=== PATIENT | male | born 1935 | race Caucasian/White ===

== ENCOUNTER 2017-04-28 17:20 | Inpatient (IN) | payer MEDICARE ==
[2017-04-28 20:57] VITALS: BP 133/78; PULSE 99; RESP 16; TEMP 98; O2SAT 94
[2017-04-28] MEDS ORDERED: MAGNESIUM HYDROXIDE SUSP 30 ML CUP PO PRN (21:00)
[2017-04-28] MEDS ORDERED: PILL SPLITTER OTHER PRN (21:00)
[2017-04-28] MEDS ORDERED: diphenhydrAMINE HCL 50 MG/ML VIAL - HS PRN IM (21:00)
[2017-04-28] MEDS ORDERED: LORazepam 2 MG/ML VIAL - age > 65 yrs IM PRN (21:00)
[2017-04-28] MEDS ORDERED: ALUMINUM/MAGNESIUM/SIMETH 30 ML CUP PO PRN (21:00)
[2017-04-28] MEDS ORDERED: QUEtiapine FUMARATE 25 MG TAB PO SCH (21:00)
[2017-04-28] MEDS ORDERED: LORazepam 0.5 MG TAB age > 65 yrs PO PRN (21:00)
[2017-04-28] MEDS ORDERED: REMOVE OLD NICOTINE PATCH T-DERMAL SCH (21:00)
[2017-04-28] MEDS ORDERED: ACETAMINOPHEN 325 MG TAB PO PRN (21:00)
[2017-04-28] MEDS ORDERED: diphenhydrAMINE HCL 50 MG CAP - HS PRN PO (21:00)
[2017-04-29] MEDS ORDERED: BACT800T5 PO (00:25)
[2017-04-29] MEDS ORDERED: TAMS0.4C4 PO (00:25)
[2017-04-29] MEDS ORDERED: LOSA25TA PO (00:25)
[2017-04-29 06:00] VITALS: BP 149/84; PULSE 92; RESP 18; TEMP 98.5; O2SAT 98
[2017-04-29] MEDS ORDERED: NICOTINE 21 MG/24 HR PATCH T-DERMAL SCH (09:00)
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
[2017-04-29] MEDS: SULFAMETHOXAZOLE-TRIMETHOPRIM DS 800-160 MG TAB PO SCH (20:24)
--- NOTE | 2017-04-29 22:40 | EKG ---
Date Performed: 04/29/2017 Time Performed: 10:53:18 PTAGE: 81 years EKG: Sinus rhythm VOLTAGE CRITERIA FOR LVH POSSIBLE SEPTAL MYOCARDIAL INFARCTION , OF INDETERMINATE AGE ABNORMAL ECG NO PREVIOUS TRACING DOCTOR: Husam Amos Interpretating Date/Time 04/29/2017 22:39:56
[2017-04-30 05:45] VITALS: BP 156/88; PULSE 115; RESP 18; TEMP 97.7; O2SAT 98
[2017-04-30] MEDS: TAMSULOSIN HCL 0.4 MG CAP PO SCH (08:43)
[2017-04-30] MEDS: SULFAMETHOXAZOLE-TRIMETHOPRIM DS 800-160 MG TAB PO SCH ×2 (08:43→20:53)
[2017-04-30] MEDS: LOSARTAN 25 MG TAB PO SCH (08:44)
[2017-04-30 10:14] LABS: AUTOMATED NEUTROPHIL # 5.4 TH/MM3 (1.8-7.7); BASOPHIL % 0.4 % (0.0-2.0); EOSINOPHIL # 0.1 TH/MM3 (0-0.4); HEMATOCRIT 43.3 % (39.0-51.0); HEMOGLOBIN 14.5 GM/DL (13.0-17.0); LYMPH % 15.2 % (9.0-44.0); LYMPHOCYTE # 1.1 TH/MM3 (1.0-4.8); MEAN CELL VOLUME 94.5 FL (80.0-100.0); MEAN CORPUSCULAR HEMOGLOBIN 31.6 PG (27.0-34.0); MEAN CORPUSCULAR HGB CONC 33.4 % (32.0-36.0); MEAN PLATELET VOLUME 9.3 FL (7.0-11.0); MONO % 7.7 % (0.0-8.0); MONOCYTE # 0.5 TH/MM3 (0-0.9); NEUT % 75.7 % (16.0-70.0); PLATELET COUNT 272 TH/MM3 (150-450); RED BLOOD COUNT 4.59 MIL/MM3 (4.50-5.90); RED CELL DISTRIBUTION WIDTH 14.5 % (11.6-17.2); WHITE BLOOD COUNT 7.1 TH/MM3 (4.0-11.0)
[2017-04-30 10:46] LABS: ALT (GPT) 38 U/L (12-78); AST (GOT) 28 U/L (15-37); BICARBONATE 27.6 MEQ/L (21.0-32.0); BLOOD UREA NITROGEN 37 MG/DL (7-18); CALCIUM 9.2 MG/DL (8.5-10.1); CHLORIDE 101 MEQ/L (98-107); CREATININE 1.44 MG/DL (0.60-1.30); GLOMERULAR FILTRATION RATE 47 ML/MIN (>89); GLUCOSE,RANDOM 129 MG/DL (74-106); MAGNESIUM 2.2 MG/DL (1.5-2.5); PHOSPHORUS 3.5 MG/DL (2.5-4.9); SODIUM (NA) 137 MEQ/L (136-145)
[2017-04-30 10:55] LABS: ALKALINE PHOSPHATASE 82 U/L (45-117); TOTAL BILIRUBIN ADULT 0.6 MG/DL (0.2-1.0); TOTAL PROTEIN 7.6 GM/DL (6.4-8.2)
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
--- NOTE | 2017-04-30 11:57 | HHI.PYPN ---
Subjective Chief Complaint: dementia with behavioral disturbances Remarks Patient seen in [place] with nurse Ron, chart review, patient compliant medications. 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 Hospitalist note reviewed and appreciated. Labs today continue to show abnormal kidney function with elevated BUN/creatinine with her low GFR. For now continue treatment. We'll continue to work with patient's and with patient's physicians through [facility] in [place] Review of Systems ROS Limitations: Clinical Condition, Altered Mental Status Mental Status Examination Appearance: Disheveled Consciousness: Alert Orientation: Person (minimally) Motor Activity: Other (patient laying in bed unable to ascertain) Speech: Hesitant, Slow Language: Adequate Fund of Knowledge: Poor Attention and Concentration: Easily Distracted Memory: Impaired Mood: Sad Affect: Other (decreased range and intensity) Thought Process & Associations: Disorganized Thought Content: Other (markedly disorganized) Hallucination Type: None Delusion Type: None Suicidal Ideation: No Suicidal Plan: No Suicidal Intention: No Homicidal Ideation: No Homicidal Plan: No Homicidal Intention: No Insight: Poor Judgment: Poor Results Labs Test 04/30/17 08:16 White Blood Count 7.1 TH/MM3 Red Blood Count 4.59 MIL/MM3 Hemoglobin 14.5 GM/DL Hematocrit 43.3 % Mean Corpuscular Volume 94.5 FL Mean Corpuscular Hemoglobin 31.6 PG Mean Corpuscular Hemoglobin Concent 33.4 % Red Cell Distribution Width 14.5 % Platelet Count 272 TH/MM3 Mean Platelet Volume 9.3 FL Neutrophils (%) (Auto) 75.7 % Lymphocytes (%) (Auto) 15.2 % Monocytes (%) (Auto) 7.7 % Eosinophils (%) (Auto) 1.0 % Basophils (%) (Auto) 0.4 % Neutrophils # (Auto) 5.4 TH/MM3 Lymphocytes # (Auto) 1.1 TH/MM3 Monocytes # (Auto) 0.5 TH/MM3 Eosinophils # (Auto) 0.1 TH/MM3 Basophils # (Auto) 0.0 TH/MM3 CBC Comment DIFF FINAL Differential Comment Blood Urea Nitrogen 37 MG/DL Creatinine 1.44 MG/DL Random Glucose 129 MG/DL Total Protein 7.6 GM/DL Albumin 4.0 GM/DL Calcium Level 9.2 MG/DL Phosphorus Level 3.5 MG/DL Magnesium Level 2.2 MG/DL Alkaline Phosphatase 82 U/L Aspartate Amino Transf (AST/SGOT) 28 U/L Alanine Aminotransferase (ALT/SGPT) 38 U/L Total Bilirubin 0.6 MG/DL Sodium Level 137 MEQ/L Potassium Level 3.6 MEQ/L Chloride Level 101 MEQ/L Carbon Dioxide Level 27.6 MEQ/L Anion Gap 8 MEQ/L Estimat Glomerular Filtration Rate 47 ML/MIN Free Thyroxine 1.20 NG/DL Thyroid Stimulating Hormone 3rd Gen 1.020 uIU/ML Vitals/IOs Vital Signs Date Time Temp Pulse Resp B/P (MAP) Pulse Ox O2 Delivery O2 Flow Rate FiO2 04/30/17 05:45 97.7 115 18 156/88 (110) 98 Assessment & Plan Problem List: (1) Multi-infarct dementia with behavior disturbance ICD Codes: F01.51 - Vascular dementia with behavioral disturbance (2) DEMENTIA IN OTH DISEASES CLASSD ELSWHR W BEHAVIORAL DISTURB ICD Codes: F02.81 - DEMENTIA IN OTH DISEASES CLASSD ELSWHR W BEHAVIORAL DISTURB Assessment & Plan Estimated LOS: days patient continues demented the most of behavior problems at this time. Continues pounds with his renal function will defer to hospitalist at this time Justification for Cont. Inpt. At this time patient will decompensate then placed a lower level of care Discharge Planning With continued to coordinate this with patient's and patient's outpatient physicians Request HC Surrog/Guard Advoc?: Yes Ridge Jones MD Apr 30, 2017 11:57
[2017-04-30 17:14] LABS: HEMOGLOBIN A1C 5.5 % (4.3-6.0)
[2017-04-30 18:29] VITALS: BP 119/70; PULSE 99; RESP 18; TEMP 97.7; O2SAT 98
[2017-04-30] MEDS: risperiDONE 0.25 MG TAB PO SCH (20:53)
[2017-05-01 06:10] VITALS: BP 192/82; PULSE 102; RESP 18; TEMP 97.7; O2SAT 98
[2017-05-01] MEDS: SULFAMETHOXAZOLE-TRIMETHOPRIM DS 800-160 MG TAB PO SCH ×2 (09:32→20:47)
[2017-05-01] MEDS: LOSARTAN 25 MG TAB PO SCH (09:32)
[2017-05-01] MEDS: TAMSULOSIN HCL 0.4 MG CAP PO SCH (09:33)
[2017-05-01] MEDS: risperiDONE 0.25 MG TAB PO SCH ×2 (12:00→20:48)
[2017-05-01] MEDS: METOPROLOL TARTRATE 25 MG TAB PO SCH ×2 (14:00→20:47)
[2017-05-01 14:21] VITALS: BP 156/71; PULSE 78
--- NOTE | 2017-05-01 15:10 | HHI.PR ---
Subjective Remarks Follow-up visit HTN, MRSA UTI. Patient seen and examined today sitting in a chair. Reports he is doing well. Denies any complaints. Discuss with patient continued adjustment of blood pressure medications secondary to increased BP. Agrees to plan. As per nursing, no acute issues. Objective Vitals Vital Signs Date Time Temp Pulse Resp B/P (MAP) Pulse Ox O2 Delivery O2 Flow Rate FiO2 05/01/17 14:21 78 156/71 (99) 05/01/17 06:10 97.7 102 18 192/82 (118) 98 04/30/17 18:29 97.7 99 18 119/70 (86) 98 Result Diagram: 04/30/17 0816 04/30/17 0816 Objective Remarks GENERAL: This is a well-nourished, well-developed patient, in no apparent distress. SKIN: Warm and dry. HEENT: Normocephalic. Pupils equal round and reactive. Nose without bleeding. Airway patent. NECK: Trachea midline. No JVD. Supple. CARDIOVASCULAR: Regular rate and rhythm without murmurs, gallops, or rubs. RESPIRATORY: Clear to auscultation. Breath sounds equal bilaterally. No wheezes , rales, or rhonchi. GASTROINTESTINAL: Abdomen soft, non-tender, nondistended. Bowel Sounds normoactive x4. MUSCULOSKELETAL: Extremities without clubbing, cyanosis, or edema. NEUROLOGICAL: Awake and alert. Oriented to person. No focal neuro deficit. Moves all extremities. Normal speech. Procedures NONE A/P Problem List: (1) HTN (hypertension) ICD Code: I10 - Essential (primary) hypertension (2) BPH (benign prostatic hyperplasia) ICD Code: N40.0 - Benign prostatic hyperplasia without lower urinary tract symptoms (3) DEMENTIA IN OTH DISEASES CLASSD ELSWHR W BEHAVIORAL DISTURB ICD Code: F02.81 - DEMENTIA IN OTH DISEASES CLASSD ELSWHR W BEHAVIORAL DISTURB Assessment and Plan 81-year-old gentleman initially admitted transferred from [facility] regarding recent urinary tract infection with history of MRSA and history of refusing medications with noncompliance and increasing dementia/altered mental status. Admitted to inpatient psychiatry unit. Consulted for medical management. Dementia with behavioral disturbances - Managed by psychiatry team History of MRSA UTI - Continue Bactrim use. - Trimethoprim 's can decrease to tubular secretion of creatinine that could lead to increased serum creatinine not reflective of true GFR reduction Acute kidney injury, on CKD 3 - Encouraged by mouth fluid hydration possibly patient is with CKD versus trimethoprim use - Avoid nephrotoxins. See above. - Monitor renal indicis post Bactrim use HTN, uncontrolled - Losartan 12.5 mg daily, start metoprolol 12.5 mg every 12 hours - Monitor BP trend DVT prop early ambulation Ashok Meek May 01, 2017 15:10
--- NOTE | 2017-05-01 16:16 | HHI.PYPN ---
Subjective Chief Complaint: dementia with behavioral disturbances Remarks Patient was seen and case discussed with nursing. Patient is pleasant and cooperative with exam. Alert and oriented 2. Thought process is loose. Social with others on the unit. Tolerating medications well Mental Status Examination Appearance: Disheveled Consciousness: Alert Orientation: Person (minimally) Motor Activity: Other (patient laying in bed unable to ascertain) Speech: Hesitant, Slow Language: Adequate Fund of Knowledge: Poor Attention and Concentration: Easily Distracted Memory: Impaired Mood: Appropriate Affect: Other (decreased range and intensity) Thought Process & Associations: Loose associations Thought Content: Other (markedly disorganized) Hallucination Type: None Delusion Type: None Suicidal Ideation: No Suicidal Plan: No Suicidal Intention: No Homicidal Ideation: No Homicidal Plan: No Homicidal Intention: No Insight: Poor Judgment: Poor Results Vitals/IOs Vital Signs Date Time Temp Pulse Resp B/P (MAP) Pulse Ox O2 Delivery O2 Flow Rate FiO2 05/01/17 14:21 78 156/71 (99) 05/01/17 06:10 97.7 18 98 Assessment & Plan Problem List: (1) Multi-infarct dementia with behavior disturbance ICD Codes: F01.51 - Vascular dementia with behavioral disturbance (2) DEMENTIA IN OTH DISEASES CLASSD ELSWHR W BEHAVIORAL DISTURB ICD Codes: F02.81 - DEMENTIA IN OTH DISEASES CLASSD ELSWHR W BEHAVIORAL DISTURB Assessment & Plan Continue current treatment plan Justification for Cont. Inpt. Patient will decompensate in a less restrictive setting Request HC Surrog/Guard Advoc?: Yes Elkin Haro DO May 01, 2017 16:16
[2017-05-01 18:12] VITALS: BP_SYST 113; BP_SYST 120; BP_DIAS 64; BP_DIAS 88; PULSE 88; RESP 18; TEMP 98; O2SAT 100; O2SAT 94
[2017-05-01] MEDS: hydrOXYzine HCL 50 MG TAB PO PRN (20:47)
[2017-05-02 06:15] VITALS: BP 161/78; PULSE 101; RESP 17; TEMP 97.5; O2SAT 96
[2017-05-02] MEDS: SULFAMETHOXAZOLE-TRIMETHOPRIM DS 800-160 MG TAB PO SCH ×3 (08:18→21:00)
[2017-05-02] MEDS: TAMSULOSIN HCL 0.4 MG CAP PO SCH (08:18)
[2017-05-02] MEDS: METOPROLOL TARTRATE 25 MG TAB PO SCH ×3 (08:18→21:00)
[2017-05-02] MEDS: LOSARTAN 25 MG TAB PO SCH (08:18)
[2017-05-02 11:25] VITALS: BP 116/56; PULSE 80
[2017-05-02] MEDS: risperiDONE 0.25 MG TAB PO SCH ×2 (11:43→20:19)
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
[2017-05-02 18:07] VITALS: BP 156/66; PULSE 98; RESP 17; TEMP 97.5; O2SAT 97
[2017-05-02] MEDS: hydrOXYzine HCL 50 MG TAB PO PRN (20:18)
[2017-05-02] MEDS ORDERED: ZIPRASIDONE MESYLATE 20 MG VIAL IM ONE ×2 (21:00→21:04)
[2017-05-02] MEDS ORDERED: LORazepam 2 MG/ML VIAL IM ONE (21:00)
[2017-05-02] MEDS ORDERED: diphenhydrAMINE HCL 50 MG/ML VIAL IM ONE (21:00)
[2017-05-02] MEDS ORDERED: diphenhydrAMINE HCL 50 MG/ML VIAL ONE (21:04)
[2017-05-02] MEDS ORDERED: LORazepam 2 MG/ML VIAL ONE (21:04)
[2017-05-03 05:27] VITALS: BP 119/58; PULSE 91; RESP 15; TEMP 98.2; O2SAT 96
[2017-05-03] MEDS: SULFAMETHOXAZOLE-TRIMETHOPRIM DS 800-160 MG TAB PO SCH (09:19)
[2017-05-03] MEDS: LOSARTAN 25 MG TAB PO SCH (09:19)
[2017-05-03] MEDS: METOPROLOL TARTRATE 25 MG TAB PO SCH (09:19)
[2017-05-03] MEDS: TAMSULOSIN HCL 0.4 MG CAP PO SCH (09:19)
--- NOTE | 2017-05-03 09:41 | HHI.PR ---
Subjective Remarks Follow-up visit HTN, MRSA UTI. Patient seen and examined in his room sitting up in bed with nurse at bedside. He denies any fevers, chills, nausea, vomiting , diarrhea. He is also denying dysuria or hematuria. He is alert and oriented to self, denies any constipation or discomfort. Spoke with nurse who repots patient with behavioral issues last night, no concerns. Objective Vitals Vital Signs Date Time Temp Pulse Resp B/P (MAP) Pulse Ox O2 Delivery O2 Flow Rate FiO2 05/03/17 05:27 98.2 91 15 119/58 (78) 96 05/02/17 18:07 97.5 98 17 156/66 (96) 97 05/02/17 11:25 80 116/56 (76) I/O 05/02/17 05/02/17 05/02/17 05/03/17 05/03/17 05/03/17 07:00 15:00 23:00 07:00 15:00 23:00 Intake Total 360 ml 240 ml 240 ml Balance 360 ml 240 ml 240 ml Intake Oral 360 ml 240 ml 240 ml # Voids 2 Result Diagram: 04/30/17 0816 04/30/17 0816 Objective Remarks GENERAL: This is a well-nourished, well-developed patient, in no apparent distress, calm with slow response. SKIN: Warm and dry. HEENT: Normocephalic. Pupils equal round and reactive. Nose without bleeding. Airway patent. NECK: Trachea midline. No JVD. CARDIOVASCULAR: Regular rate and rhythm without murmurs, gallops, or rubs. RESPIRATORY: Clear to auscultation. Breath sounds equal bilaterally. No wheezes , rales, or rhonchi. GASTROINTESTINAL: Abdomen soft, non-tender, nondistended. Bowel Sounds normoactive x4. MUSCULOSKELETAL: Extremities without clubbing, cyanosis, or edema. NEUROLOGICAL: Awake and alert. Oriented to person. No focal neuro deficit. Moves all extremities. Clear speech. Procedures NONE A/P Problem List: (1) HTN (hypertension) ICD Code: I10 - Essential (primary) hypertension (2) BPH (benign prostatic hyperplasia) ICD Code: N40.0 - Benign prostatic hyperplasia without lower urinary tract symptoms (3) DEMENTIA IN OTH DISEASES CLASSD ELSWHR W BEHAVIORAL DISTURB ICD Code: F02.81 - DEMENTIA IN OTH DISEASES CLASSD MIGUEL Pearl BEHAVIORAL DISTURB Assessment and Plan 81-year-old gentleman initially admitted transferred from [facility] regarding recent urinary tract infection with history of MRSA and history of refusing medications with noncompliance and increasing dementia/altered mental status. Admitted to inpatient psychiatry unit. Consulted for medical management. Dementia with behavioral disturbances - Managed by psychiatry team History of MRSA UTI - On Bactrim PO ([facility] start date 04/26/17 end date 05/06/17) - Trimethoprim 's can decrease to tubular secretion of creatinine that could lead to increased serum creatinine not reflective of true GFR reduction Acute kidney injury, on CKD 3 - [facility] labs reviewed (04/26/17 BUN 27, Creatinine 0.9, GFR >60.0) - Latest labs BUN 37, Creatinine 1.44, GFR 47) - Encouraged by mouth fluid hydration possibly patient is with CKD versus trimethoprim use - Avoid nephrotoxins. See above. - Monitor renal indicis post Bactrim use HTN, controlled - Continue Losartan 12.5 mg daily and metoprolol 12.5 mg every 12 hours - Monitor BP trend DVT prop early ambulation Possible discharge to day, recommend checking BMP after completing course of Bactrim. Discussed with nurse. Andrea Coats May 03, 2017 09:41
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
[2017-05-03] MEDS: risperiDONE 0.25 MG TAB PO SCH (12:57)
[2017-05-03 13:29] LABS: AUTOMATED NEUTROPHIL # 3.6 TH/MM3 (1.8-7.7); BASOPHIL % 0.8 % (0.0-2.0); EOSINOPHIL # 0.1 TH/MM3 (0-0.4); EOSINOPHIL % 2.8 % (0.0-4.0); HEMATOCRIT 38.8 % (39.0-51.0); LYMPH % 19.8 % (9.0-44.0); MEAN CELL VOLUME 94.3 FL (80.0-100.0); MEAN CORPUSCULAR HEMOGLOBIN 31.7 PG (27.0-34.0); MEAN CORPUSCULAR HGB CONC 33.6 % (32.0-36.0); MEAN PLATELET VOLUME 9.5 FL (7.0-11.0); MONO % 9.5 % (0.0-8.0); MONOCYTE # 0.5 TH/MM3 (0-0.9); NEUT % 67.1 % (16.0-70.0); PLATELET COUNT 216 TH/MM3 (150-450); RED BLOOD COUNT 4.12 MIL/MM3 (4.50-5.90); RED CELL DISTRIBUTION WIDTH 14.9 % (11.6-17.2); WHITE BLOOD COUNT 5.3 TH/MM3 (4.0-11.0)
[2017-05-03 13:53] LABS: ALBUMIN 3.6 GM/DL (3.4-5.0); ALKALINE PHOSPHATASE 73 U/L (45-117); ALT (GPT) 37 U/L (12-78); AST (GOT) 24 U/L (15-37); BICARBONATE 26.7 MEQ/L (21.0-32.0); BLOOD UREA NITROGEN 53 MG/DL (7-18); CALCIUM 8.7 MG/DL (8.5-10.1); CHLORIDE 106 MEQ/L (98-107); CREATININE 1.39 MG/DL (0.60-1.30); GLOMERULAR FILTRATION RATE 49 ML/MIN (>89); GLUCOSE,RANDOM 113 MG/DL (74-106); MAGNESIUM 2.2 MG/DL (1.5-2.5); PHOSPHORUS 2.9 MG/DL (2.5-4.9); SODIUM (NA) 140 MEQ/L (136-145); TOTAL BILIRUBIN ADULT 0.7 MG/DL (0.2-1.0); TOTAL PROTEIN 6.7 GM/DL (6.4-8.2)
[2017-05-03] MEDS ORDERED: LOSA25TA PO (14:26)
[2017-05-03] MEDS ORDERED: BACT800T5 PO (14:26)
[2017-05-03] MEDS ORDERED: RISP0.5T25 PO (14:26)
[2017-05-03] MEDS ORDERED: METO25TA3 PO (14:26)
[2017-05-03] MEDS ORDERED: TAMS0.4C4 PO (14:26)
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
== END 2017-05-03 15:00 | disposition home or self-care (01) | DRG 57 ==
LOC: H250 19:15
PROVIDERS: ADMIT Psychiatry & Neurology Psychiatry; ATTEND Psychiatry & Neurology Psychiatry
DX: G30.9 Alzheimer's disease, unspecified (principal); N17.9 Acute kidney failure, unspecified; F01.51 Vascular dementia, unspecified severity, with behavioral disturbance; I69.311 Memory deficit following cerebral infarction; I69.318 Other symptoms and signs involving cognitive functions following cerebral infarction; F02.80 Dementia in other diseases classified elsewhere, unspecified severity, without behavioral disturbance, psychotic disturbance, mood disturbance, and anxiety; N18.3 Chronic kidney disease, stage 3 (moderate); I12.9 Hypertensive chronic kidney disease with stage 1 through stage 4 chronic kidney disease, or unspecified chronic kidney disease; N40.1 Benign prostatic hyperplasia with lower urinary tract symptoms; N39.498 Other specified urinary incontinence; Z86.14 Personal history of Methicillin resistant Staphylococcus aureus infection
CPT/HCPCS: 80053; 83036; 83735; 84100; 84439; 84443; 85025; 93005; J1200; J2060; J3486; Q0163